=== PATIENT | male | born 1990 | race American Indian/Alaskan Native ===

== ENCOUNTER → 2018-07-19 | Emergency (ER) | payer SELFPAY ==
--- NOTE | 2018-07-19 14:07 | Emergency Department Report ---
Chief Complaint: Urogenital-Male Stated Complaint: STI - HPI History of Present Illness: Patient comes in for 2 day history of penile discharge. Patient reports that she has a STI. Patient denies any abd pain, fever or chills. - ROS Review of Systems: penile discharge. No abd pain, no fever. - Exam Physical Exam: AxO times 3. NAD. abd soft non tender. MSE screening note: Focused history and physical exam performed. Due to findings the following was ordered: Patient is referred to Health department. Discuss with patient to refrain from intercourse. ED Disposition for MSE Condition: Stable
== END ==
LOC: ED 13:36
DX: A64 Unspecified sexually transmitted disease (principal); Z53.21 Procedure and treatment not carried out due to patient leaving prior to being seen by health care provider